=== PATIENT | female | born 1965 | race Two or more races ===

== ENCOUNTER 2019-07-01 12:01 | Emergency (ER) | payer MEDICAID ==
[~2019-07-01] VITALS: Ht 160 cm; Wt 76.7 kg
[2019-07-01 12:09] VITALS: BP 129/65
== END 2019-07-01 16:08 | disposition left against medical advice (07) ==
LOC: ER 12:11
DX: R42 Dizziness and giddiness (principal); Z53.21 Procedure and treatment not carried out due to patient leaving prior to being seen by health care provider
CPT/HCPCS: 82962